=== PATIENT | male | born 1960 | race Caucasian/White ===

== ENCOUNTER 2016-11-30 15:53 | Emergency (ER) | payer OTHER ==
[2016-11-30 16:00] VITALS: BP 135/81
--- NOTE | 2016-11-30 16:17 | UC ---
Throat Pain/Nasal Viet HPI - HPI Summary HPI Summary: sinus pain and pressure x 5 days + pnd , nasal congestion, cough no fever, + chills - History of Current Complaint Chief Complaint: UCGeneralIllness Stated Complaint: SINUS,HEADACHE,EAR PAIN Time Seen by Provider: 11/30/16 16:10 Hx Obtained From: Patient Onset/Duration: Gradual Onset, Lasting Days - 5, Still Present Severity: Moderate Cough: Nonproductive Associated Signs & Symptoms: Positive: Sinus Discomfort, Nasal Discharge. Negative: Dysphagia, Wheezing, Hoarseness, Fever - Allergies/Home Medications Allergies/Adverse Reactions: Allergies Allergy/AdvReac Type Severity Reaction Status Date / Time Tramadol Allergy See Comment Verified 11/30/16 16:00 PMH/Surg Hx/FS Hx/Imm Hx Endocrine History Of: Denies: Diabetes Cardiovascular History Of: Reports: Hypertension Denies: Cardiac Disorders, Pacemaker/ICD Respiratory History Of: Denies: Asthma - Surgical History Surgical History: Yes Surgery Procedure, Year, and Place: 2003 Left shoulder repair of rotator cuff,. 2010 right hip replacement. LEFT FOOT SURGERY, TOES DISLOCATED - Family History Known Family History: Positive: Hypertension - Social History Alcohol Use: None Substance Use Type: None Smoking Status (MU): Former Smoker - Immunization History Hx Tetanus, Diphtheria Vaccination: Yes Vaccination Up to Date: Yes Review of Systems Constitutional: Chills, Fatigue Skin: Negative Eyes: Negative ENT: Ear Ache, Nasal Discharge Respiratory: Cough Cardiovascular: Negative Gastrointestinal: Negative Genitourinary: Negative All Other Systems Reviewed And Are Negative: Yes Physical Exam Triage Information Reviewed: Yes Appearance: Well-Appearing, No Pain Distress, Well-Nourished Vital Signs: Initial Vital Signs Temp 98.4 F 11/30/16 15:56 Pulse 62 11/30/16 15:56 Resp 16 11/30/16 15:56 BP 135/81 11/30/16 15:56 Pulse Ox 98 11/30/16 15:56 Vital Signs Reviewed: Yes Eye Exam: Normal Eyes: Positive: Conjunctiva Clear ENT: Positive: Normal ENT inspection, Hearing grossly normal, Pharyngeal erythema, Nasal congestion, Nasal drainage, TMs normal Neck: Positive: Supple, Nontender, No Lymphadenopathy Respiratory: Positive: Chest non-tender, Lungs clear, Normal breath sounds Cardiovascular: Positive: RRR, No Murmur, Pulses Normal Throat Pain/Nasal Course/Dx - Differential Dx/Diagnosis Provider Diagnoses: sinusitis Discharge - Discharge Plan Condition: Stable Disposition: HOME Prescriptions: Amoxicillin/Clavulanate TAB* [Augmentin TAB 875*] 875 mg PO BID #20 tab Patient Education Materials: Sinusitis (ED) Referrals: EREN Rodriguez [Primary Care Provider] - If Needed
== END 2016-11-30 16:27 | disposition home or self-care (01) ==
LOC: UCCORT 15:53
DX: J32.9 Chronic sinusitis, unspecified (principal); Z96.641 Presence of right artificial hip joint; Z87.891 Personal history of nicotine dependence; Z88.5 Allergy status to narcotic agent
CPT/HCPCS: 99212; G0463

== ENCOUNTER 2018-02-10 11:18 | Emergency (ER) | payer OTHER ==
[2018-02-10 11:54] VITALS: BP 142/83
--- NOTE | 2018-02-10 12:02 | UC ---
Neck Pain HPI - HPI Summary HPI Summary: CJ/O neck strain 2 days ago changing tire on a tractor. - History of Current Complaint Chief Complaint: UCGeneralIllness Stated Complaint: NECK PAIN Time Seen by Provider: 02/10/18 11:56 Hx Obtained From: Patient Onset/Duration Of Injury/Symptoms: Days - 2 Mechanism Of Injury: No Known Trauma Timing: Constant Onset/Duration: Sudden Onset, Lasting Days - 2, Still Present Severity: Severe Pain Intensity: 10 Location: Discrete At: - left posterior / lateral neck Character: Dull, Aching Aggravating Factors: Movement Alleviating Factors: Nothing Associated Signs & Symptoms: Positive: Swelling. Negative: Redness, Weakness, Paresthesia - Allergies/Home Medications Allergies/Adverse Reactions: Allergies Allergy/AdvReac Type Severity Reaction Status Date / Time tramadol AdvReac BP goes Verified 02/10/18 11:54 "john high" Home Medications: Home Medications Atomoxetine(NF) [Strattera(NF)] 80 mg PO DAILY 02/10/18 [History Confirmed 02/10] Atorvastatin* [Lipitor 20 MG*] 20 mg PO BEDTIME 02/10/18 [History Confirmed 06/22] Meloxicam(NF) [Mobic(NF)] 15 mg PO DAILY 02/10/18 [History Confirmed 02/10/18] PMH/Surg Hx/FS Hx/Imm Hx Cardiovascular History: Hypertension - Surgical History Surgical History: Yes Surgery Procedure, Year, and Place: 2003 Left shoulder repair of rotator cuff,. 2010 right hip replacement. LEFT FOOT SURGERY, TOES DISLOCATED - Family History Known Family History: Positive: Hypertension, Diabetes - Social History Occupation: Employed Full-time Lives: With Family Alcohol Use: Occasionally Substance Use Type: None Smoking Status (MU): Former Smoker - Immunization History Hx Tetanus, Diphtheria Vaccination: Yes Vaccination Up to Date: Yes Review Of Systems Musculoskeletal: Positive: Myalgia All Other Systems Reviewed And Are Negative: Yes Physical Exam Triage Information Reviewed: Yes Appearance: Well-Appearing, Pain Distress - moderate, especially with neck movement, Obese Vital Signs: Initial Vital Signs Temp 98.3 F 02/10/18 11:50 Pulse 63 02/10/18 11:50 Resp 18 02/10/18 11:50 BP 142/83 02/10/18 11:50 Pulse Ox 97 02/10/18 11:50 Vital Signs Reviewed: Yes Eyes: Positive: Conjunctiva Clear ENT: Positive: Pharynx normal, TMs normal Neck: Positive: Tenderness @ - Left lateral cervical muscles, including muscle knots/ trigger points in the Middle trapezius. Negative: Supple Respiratory Exam: Normal Cardiovascular Exam: Normal Musculoskeletal: Positive: ROM Limited @ - at the neck Neurological Exam: Normal Psychological Exam: Normal Skin Exam: Normal Neck Pain Course/Dx - Differential Dx/Diagnosis Differential Dx/HQI/PQRI: Cervical Fracture, Sprain, Strain, Torticollis Provider Diagnoses: Cervical muscle strain. Discharge - Sign-Out/Discharge Documenting (check all that apply): Discharge - Discharge Plan Condition: Stable Disposition: HOME Prescriptions: Cyclobenzaprine TAB* [Flexeril 10 MG TAB*] 10 mg PO TID PRN #30 tab PRN Reason: Pain Patient Education Materials: Cervical Strain (ED), Cyclobenzaprine (By mouth) Referrals: EREN Rodriguez [Primary Care Provider] - Additional Instructions: Ok to use heat now. Magnesium 400 or 500mg twice a day can help with muscle spasm. Trigger point massage with muscle balms like IcyHot - Billing Disposition and Condition Condition: STABLE Disposition: HOME
== END 2018-02-10 12:19 | disposition home or self-care (01) ==
LOC: UCCORT 11:18
DX: S16.1XXA Strain of muscle, fascia and tendon at neck level, initial encounter (principal); X50.0XXA Overexertion from strenuous movement or load, initial encounter; Y93.89 Activity, other specified; Y92.9 Unspecified place or not applicable; Z88.5 Allergy status to narcotic agent; Z87.891 Personal history of nicotine dependence
CPT/HCPCS: 99212; G0463

== ENCOUNTER 2018-05-18 12:10 | Emergency (ER) | payer OTHER ==
--- NOTE | 2018-05-18 12:18 | UC ---
Lower Extremity/Ankle HPI - HPI Summary HPI Summary: 57 year old male with ankle pain. Was baling hay with a friend and twisted ankle. after that he fell down about 4 foot and landed on his feet. no other pain. no hitting head or LOC. feels only pain in the ankle. no foot pain . - History of Current Complaint Stated Complaint: LEFT ANKLE INJURY Time Seen by Provider: 05/18/18 12:16 Hx Obtained From: Patient Onset/Duration: Sudden Onset Severity Initially: Moderate Severity Currently: Moderate Aggravating Factor(s): Standing, Ambulation Alleviating Factor(s): Rest - Allergies/Home Medications Allergies/Adverse Reactions: Allergies Allergy/AdvReac Type Severity Reaction Status Date / Time tramadol AdvReac BP goes Verified 05/18/18 12:24 "john high" Home Medications: Home Medications Ibuprofen TAB* [Motrin TAB* 600 MG] 600 mg PO ONCE PRN 05/18/18 [History Confirmed 05/18/18] PMH/Surg Hx/FS Hx/Imm Hx Previously Healthy: Yes - Surgical History Surgical History: Yes Surgery Procedure, Year, and Place: 2003 Left shoulder repair of rotator cuff,. 2010 right hip replacement. LEFT FOOT SURGERY, TOES DISLOCATED - Family History Known Family History: Positive: Hypertension, Diabetes - Social History Occupation: Employed Full-time Lives: With Family Alcohol Use: Occasionally Substance Use Type: None Smoking Status (MU): Former Smoker - Immunization History Hx Tetanus, Diphtheria Vaccination: Yes Vaccination Up to Date: Yes Review of Systems Motor: Decreased ROM Musculoskeletal: Arthralgia, Decreased ROM Is Patient Immunocompromised?: No All Other Systems Reviewed And Are Negative: Yes Physical Exam Triage Information Reviewed: Yes Appearance: Well-Appearing, No Pain Distress, Well-Nourished Vital Signs Reviewed: Yes Eye Exam: Normal Respiratory Exam: Normal Cardiovascular Exam: Normal Musculoskeletal: Positive: ROM Limited @ - with inversion. pain with inversion. swelling lateral malleolus Neurological Exam: Normal Psychological Exam: Normal Skin Exam: Normal Lower Extremity Course/Dx - Course Course Of Treatment: declined crutches has at home. give WILMAR / splint. f/u with PCP or ortho if pain persists - Differential Dx/Diagnosis Differential Diagnosis/HQI/PQRI: Fracture (Closed), Sprain, Strain, Tendonitis Provider Diagnoses: Left ankle sprain Discharge - Sign-Out/Discharge Documenting (check all that apply): Patient Departure - Discharge Plan Condition: Good Disposition: HOME Patient Education Materials: Ankle Sprain (ED) Forms: *Work Release Referrals: Pratik Clark [Primary Care Provider] - 3 Days - Billing Disposition and Condition Condition: GOOD Disposition: Home
[2018-05-18 12:24] VITALS: BP 119/72
[2018-05-18] MEDS ORDERED: Acetaminophen TAB* 325 MG PO ONE (12:35)
--- NOTE | 2018-05-18 13:22 | RAD ---
INDICATION: Left ankle pain after a fall COMPARISON: None. TECHNIQUE: 3 views of the left ankle were obtained. FINDINGS: There is mild soft tissue swelling overlying the fibular malleolus. Postsurgical changes include medullary screws overlying the first and second distal metatarsals. The visualized bones are otherwise intact and appropriately aligned. IMPRESSION: MODERATE SOFT TISSUE SWELLING OVERLYING THE FIBULAR MALLEOLUS WITHOUT RADIOGRAPHICALLY APPARENT FRACTURE OR DISLOCATION. If the patient's symptoms persist, follow-up imaging is recommended.
== END 2018-05-18 13:42 | disposition home or self-care (01) ==
LOC: UCCORT 12:10
DX: S93.402A Sprain of unspecified ligament of left ankle, initial encounter (principal); Z88.5 Allergy status to narcotic agent; Z87.891 Personal history of nicotine dependence; X50.1XXA Overexertion from prolonged static or awkward postures, initial encounter; Y92.9 Unspecified place or not applicable
CPT/HCPCS: 99212; A9270-GY; G0463

== ENCOUNTER 2019-03-26 19:33 | Emergency (ER) | payer OTHER ==
[2019-03-26 19:56] VITALS: BP 118/83
--- NOTE | 2019-03-26 20:26 | UC ---
UC General HPI - HPI Summary HPI Summary: around 1pm today, pt had a door on a gravity wagon come down on the back of his L wrist/forearm area. c/o ongoing pain/swelling. abrasion at site. last tetanus was about 3-4 years ago. - History of Current Complaint Chief Complaint: UCUpperExtremity Stated Complaint: LEFT ARM INJURY Time Seen by Provider: 03/26/19 20:08 Hx Obtained From: Patient Onset/Duration: Sudden Onset Timing: Constant Pain Intensity: 7 Associated Signs & Symptoms: Negative: Fever, Weakness - Allergy/Home Medications Allergies/Adverse Reactions: Allergies Allergy/AdvReac Type Severity Reaction Status Date / Time tramadol AdvReac BP goes Verified 03/26/19 19:56 "john high" PMH/Surg Hx/FS Hx/Imm Hx - Additional Past Medical History Additional PMH: arthritis Cardiovascular History: Hypertension - Surgical History Surgical History: Yes Surgery Procedure, Year, and Place: 2003 Left shoulder repair of rotator cuff,. 2010 right hip replacement. LEFT FOOT SURGERY, TOES DISLOCATED - Family History Known Family History: Positive: Hypertension, Diabetes - Social History Occupation: Employed Full-time Alcohol Use: Occasionally Substance Use Type: None Smoking Status (MU): Never Smoked Tobacco - Immunization History Hx Tetanus, Diphtheria Vaccination: Yes Vaccination Up to Date: Yes Review of Systems All Other Systems Reviewed And Are Negative: No Constitutional: Negative: Fever Skin: Negative: Rash Musculoskeletal: Negative: Decreased ROM Neurological: Negative: Weakness, Numbness Physical Exam Triage Information Reviewed: Yes Appearance: Well-Appearing Vital Signs: Initial Vital Signs Temp 98.5 F 03/26/19 19:50 Pulse 74 03/26/19 19:50 Resp 16 03/26/19 19:50 BP 118/83 03/26/19 19:50 Pulse Ox 96 03/26/19 19:50 Vital Signs Reviewed: Yes Respiratory: Positive: No respiratory distress Cardiovascular: Positive: RRR Musculoskeletal: Positive: Other: - LUE: shoulder and elbow are non tender. the dorsal-distal forearm/wrist area has a superficial abrasion with swelling and tenderness. Snuff box and hand are non tender. hand has full s/v/m function. Neurological: Positive: Alert Psychological: Positive: Age Appropriate Behavior Skin Exam: Normal Diagnostics - Radiology No standard instances Radiology Interpretation Completed By: ED Physician - L FA: no fx, soft tisuue FB Course/Dx - Course Course Of Treatment: PROCEDURE: ABRASION WASHED WITH SOAP AND WATER THEN EXPLORED AND IS SUPERFICIAL. COOVERED WITH TOPICAL ANTIBIOTIC AND NON ADHERING DRESSING. FB ON XRAY NOT RELATED TO THIS INJURY. - Differential Dx - Multi-Symptom Differential Diagnoses: Other - NOP INFECTION OR FX. FB ON XRAY IS NOT RELATED THE THE SUPERFICIAL ABRASION. - Diagnoses Provider Diagnosis: Contusion of left forearm, Abrasion of left forearm Discharge - Sign-Out/Discharge Documenting (check all that apply): Patient Departure All imaging exams completed and their final reports reviewed: No - Discharge Plan Condition: Stable Disposition: HOME Patient Education Materials: Contusion in Adults (ED), Abrasion (ED) Referrals: Pratik Franklin PA [Primary Care Provider] - If Needed - Billing Disposition and Condition Condition: STABLE Disposition: Home
--- NOTE | 2019-03-27 10:13 | ED ---
Progress - Progress Note Progress Note: Forearm xray read as negative by radiology Course/Dx - Diagnoses Provider Diagnoses: Contusion of left forearm, Abrasion of left forearm Discharge - Sign-Out/Discharge Documenting (check all that apply): Patient Departure All imaging exams completed and their final reports reviewed: Yes - Discharge Plan Condition: Stable Disposition: HOME Patient Education Materials: Contusion in Adults (ED), Abrasion (ED) Referrals: Pratik Franklin PA [Primary Care Provider] - If Needed - Billing Disposition and Condition Condition: STABLE Disposition: Home
== END 2019-03-26 20:30 | disposition home or self-care (01) ==
LOC: UCCORT 19:33
DX: S50.12XA Contusion of left forearm, initial encounter (principal); S50.812A Abrasion of left forearm, initial encounter; I10 Essential (primary) hypertension; Z88.5 Allergy status to narcotic agent; X58.XXXA Exposure to other specified factors, initial encounter; Y92.9 Unspecified place or not applicable
CPT/HCPCS: 99212; G0463

== ENCOUNTER 2019-11-11 18:11 | Emergency (ER) | payer OTHER ==
--- OUTSIDE RECORDS SUMMARY | 2019-11-11 18:18 | XMS REPORT | Continuity of Care Document ---
:1960 External Reference #:[id number] Author Name Jhoana Mendoza PA Address [address] [place] [address] Care Team Providers Name Role Phone Pratik Franklin PA - Medical Care Team Information Hospice Director [phone] Problems Active Problems Provider Date Benign essential hypertension Jhoana Mendoza PA Onset: 07/14/2019 Tenosynovitis of hand Jhoana Mendoza PA Onset: 09/08/2019 Social History Type Date Description Comments Sex Unknown Tobacco Use Start: Unknown Never Smoked Cigarettes ETOH Use Never used alcohol Recreational Drug Use Denies Drug Use Tobacco Use Start: Unknown Patient denies history of smoking Smoking Status Reviewed: 10/09/19 Patient denies history of smoking Allergies, Adverse Reactions, Alerts Description No Known Drug Allergies Medications Active Medications SIG Qnty Indications Ordering Date Provider Stefan 2g to right 300gm M65.831 Latosha Viramontes, 08/04/2019 1% Gel elbow 4 times a MD day as needed Meloxicam take 1 tablet 30tabs M65.831 Latosha Viramontes, 07/14/2019 15mg Tablets by mouth once MD daily Atomoxetine HCL one tablet Unknown 80mg Capsules every day Lisinopril take 1 tablet Unknown 30mg Tablets by mouth once daily Atorvastatin Calcium one tablet Unknown 80mg every day Tablets Cyclobenzaprine HCL one tablet Unknown 10mg every 6 hours Tablets as needed Ibuprofen 200 3 tabs by mouth Unknown 200mg Tablets three times a day as needed Immunizations Description No Information Available Vital Signs Date Vital Result Comment 10/09/2019 8:51am BP Systolic Sitting Left Arm 184 mmHg BP Diastolic Sitting Left Arm 103 mmHg 09/08/2019 10:12am BP Systolic 148 mmHg BP Diastolic 78 mmHg Results Description No Information Available Procedures Date Code Description Status 09/01/2019 91637 Radiology, Elbow: Two Views Completed Medical Devices Description No Information Available Encounters Type Date Location Provider Dx Diagnosis Office Visit 10/09/2019 Orthopaedic Office RejiIsraelin, M65.831 Other synovitis 9:00a PA and tenosynovitis, right forearm Office Visit 09/08/2019 Orthopaedic Office RejiIsraelin, M65.831 Other synovitis 10:00a PA and tenosynovitis, right forearm Office Visit 09/01/2019 Orthopaedic Office RejiIsraelin, M65.831 Other synovitis 8:30a PA and tenosynovitis, right forearm Office Visit 08/04/2019 Orthopaedic Office Jhoana Mendoza, M65.831 Other synovitis 8:30a PA and tenosynovitis, right forearm Office Visit 07/14/2019 Orthopaedic Office Jhoana Mendoza, M65.831 Other synovitis 9:15a PA and tenosynovitis, right forearm Assessments Date Code Description Provider 10/09/2019 M65.831 Other synovitis and tenosynovitis, right RejiJhoana, PA forearm 09/08/2019 M65.831 Other synovitis and tenosynovitis, right RejiJhoana, PA forearm 09/01/2019 M65.831 Other synovitis and tenosynovitis, right Jhoana Mendoza, PA forearm 08/04/2019 M65.831 Other synovitis and tenosynovitis, right RejiJhoana, PA forearm 07/14/2019 M65.831 Other synovitis and tenosynovitis, right Israel Mendozain, PA forearm Plan of Treatment 10/09/2019 - Reji Jhoana, PAM65.831 Other synovitis and tenosynovitis, right forearmComments:Overall he is doing well, he will return to work and activities as tolerated. He will follow up as needed. Functional Status Description No Information Available Mental Status Description No Information Available Referrals Refer to Reason for Referral Status Appt Date Juanjo Hidalgo MD RT elbow pain/tendinitis Juanjo, Please pick Closed 09/16/2019 up your MRI/Xray CD from our office prior to your appointment. Thank you. [facility], [facility] [address], [address] [place] [id number] [phone]
[2019-11-11 18:36] VITALS: BP 138/75
--- NOTE | 2019-11-11 19:49 | UC ---
Lower Extremity/Ankle HPI - HPI Summary HPI Summary: 58 year old male with + surgery to L foot for dislocated toes in the past presents after unknown injury to foot today while dragging coyote through [place]. Patient denies pain at time of suspected injury, however after removing his shoe about 45 minutes later had increased pain, swelling to lateral mid-foot. No bruising. + ambulatory with pain, better with wearing shoes. - History of Current Complaint Chief Complaint: UCLowerExtremity Stated Complaint: LEFT FOOT INJURY Time Seen by Provider: 11/11/19 19:22 Hx Obtained From: Patient Onset/Duration: Lasting Hours Severity Initially: Mild Severity Currently: Moderate Pain Intensity: 8 Pain Scale Used: 0-10 Numeric Aggravating Factor(s): Standing, Ambulation Alleviating Factor(s): Rest, Elevation Able to Bear Weight: Yes - Allergies/Home Medications Allergies/Adverse Reactions: Allergies Allergy/AdvReac Type Severity Reaction Status Date / Time tramadol AdvReac BP goes Verified 11/11/19 18:36 "john high" PMH/Surg Hx/FS Hx/Imm Hx Previously Healthy: Yes - Surgical History Surgical History: Yes Surgery Procedure, Year, and Place: 2003 Left shoulder repair of rotator cuff,. 2010 right hip replacement. LEFT FOOT SURGERY, TOES DISLOCATED - Family History Known Family History: Positive: Hypertension, Diabetes - Social History Occupation: Employed Full-time Alcohol Use: Occasionally Substance Use Type: None Smoking Status (MU): Never Smoked Tobacco - Immunization History Hx Tetanus, Diphtheria Vaccination: Yes Vaccination Up to Date: Yes Review of Systems All Other Systems Reviewed And Are Negative: Yes Skin: Positive: Bruising, Other - swelling Neurovascular: Positive: Negative Musculoskeletal: Positive: Arthralgia, Decreased ROM, Edema, Myalgia Is Patient Immunocompromised?: No Physical Exam Triage Information Reviewed: Yes Appearance: Well-Appearing, No Pain Distress, Well-Nourished Vital Signs: Initial Vital Signs Temp 98.2 F 11/11/19 18:31 Pulse 76 11/11/19 18:31 Resp 16 11/11/19 18:31 BP 138/75 11/11/19 18:31 Pulse Ox 96 11/11/19 18:31 Vital Signs Reviewed: Yes Eyes: Positive: Conjunctiva Clear ENT: Positive: Hearing grossly normal Musculoskeletal: Positive: ROM Intact - PROM intact L ankle, foot. Neurological: Positive: Alert, Other: - SITLT L foot Psychological Exam: Normal Skin: Positive: Other - left ankle- No open wounds or sores. TTP over ATFL, no other tenderness. mild swelling over ATFL. neg achilles, no instabilty of mortise, no ttp over mortise. PT 2+, sitlt midfoot, no TTP over metatarsals. neg squeeze test.. Negative: Rashes, Breakdown Lower Extremity Course/Dx - Course Course Of Treatment: Left ankle sprain - Motrin/ Naproxen over next 3-5 daily routinely to help decrease swelling, pain - Stay off of leg as much as possible - Ice, elevate, rest as much as possible. - WOrk note as needed - Follow up with orthopedics if no improvement within 3-5 days - Differential Dx/Diagnosis Differential Diagnosis/HQI/PQRI: Sprain, Strain Provider Diagnosis: Ankle sprain Discharge ED - Sign-Out/Discharge Documenting (check all that apply): Patient Departure All imaging exams completed and their final reports reviewed: No Studies - Discharge Plan Condition: Good Disposition: HOME Patient Education Materials: Ankle Sprain (ED), Ankle Stirrup Splint (ED) Forms: *Work Release Referrals: Pratik Franklin PA [Primary Care Provider] - Grayson Manriquez MD [Medical Doctor] - Additional Instructions: - Motrin/ Naproxen over next 3-5 daily routinely to help decrease swelling, pain - Stay off of leg as much as possible - Ice, elevate, rest as much as possible. - WOrk note as needed - Follow up with orthopedics if no improvement within 3-5 days - Billing Disposition and Condition Condition: GOOD Disposition: Home
== END 2019-11-11 20:07 | disposition home or self-care (01) ==
LOC: UCCORT 18:11
DX: S93.402A Sprain of unspecified ligament of left ankle, initial encounter (principal); Z88.5 Allergy status to narcotic agent; X58.XXXA Exposure to other specified factors, initial encounter; Y92.9 Unspecified place or not applicable
CPT/HCPCS: 99212; G0463

== ENCOUNTER 2020-01-03 18:49 | Emergency (ER) | payer OTHER ==
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
[2020-01-03 19:07] VITALS: BP 104/58
[2020-01-03] MEDS ORDERED: HYDROcodone/ACETAMIN 5-325 MG* 1 TAB PO ONE (19:33)
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
== END 2020-01-03 20:00 | disposition home or self-care (01) ==
LOC: UCCORT 18:49
DX: M25.511 Pain in right shoulder (principal); I10 Essential (primary) hypertension; E66.9 Obesity, unspecified; Z88.5 Allergy status to narcotic agent; Z79.899 Other long term (current) drug therapy
CPT/HCPCS: 99213; G0463